=== PATIENT | male | born 1950 | race Caucasian/White ===

== ENCOUNTER 2020-01-29 15:11 | Outpatient (REF) | payer MEDICARE, SELFPAY ==
[2020-01-29 16:24] LABS: Alanine Aminotransferase 59 U/L (0-40); Albumin Level 4.7 g/dL (3.5-5.0); Alkaline Phosphatase 38 U/L (39-117); Anion Gap 14 (12-20); Aspartate Amino Transferase 36 U/L (5-37); Bilirubin Total 0.3 mg/dL (0.0-1.0); Blood Urea Nitrogen 15 mg/dL (9-16); Calcium 9.5 mg/dL (8.4-10.2); Carbon Dioxide 28 mmol/L (22-29); Chloride 103 mmol/L (96-108); Cholesterol 156 mg/dL; Estimated Glomerular Filt Rate > 60; Glucose Random 107 mg/dL (60-115); HDL Cholesterol 37 mg/dL; LDL Cholesterol Calculated 56 mg/dl; Potassium 3.6 mmol/l (3.3-5.1); Sodium 141 mmol/L (135-145); Triglycerides 316 mg/dL
[2020-01-29 16:44] LABS: Estimated Average Glucose 120 mg/dL; Hemoglobin A1c % 5.8 %
== END 2020-01-29 15:12 | disposition home or self-care (01) ==
LOC: HO.LAB 15:11
PROVIDERS: PCP Internal Medicine; Visit Provider Physician Assistant Medical
DX: R73.01 Impaired fasting glucose (principal); I10 Essential (primary) hypertension; E78.5 Hyperlipidemia, unspecified
CPT/HCPCS: 36415; 80053; 80061; 83036